=== PATIENT | male | born 1985 | race Hispanic/Latino ===

== ENCOUNTER 2018-04-10 08:00 | Outpatient (RCR) | payer OTHER, SELFPAY ==
--- NOTE | 2018-03-16 09:55 | HP.OTEVAL ---
Patient's Visit Information ANNELIESE MONTAGUE is a 32 year old M, referred to Occupational Therapy by SHARMILA PONCE, with a diagnosis of 5th digit MCP break at neck. Date of Evaluation: 03/16/18 Occupational Therapist: Kayla Dunham - Subjective Subjective: Pt., Anneliese, arrived from work and noted that he had original injury 2017. Referred from [facility]. He is 11 weeks post break. Arrived in splint with Ronald wrap over top. He noted he did not believe fracture was healed. OT called [facility] for further clarification. See concerns box below for further details. - Pain Left Hand 1 Pain Intensity Range: 1, 6 - Objective Objective/Observation: Significantly decreased ROM and strength of L hand. Increased scar tissue formation over scar on dorsal PF. Scar closed but stiff. Increased pain with palpation over scar. Concerns: Called and talked with Zainab who transferred me to [place] at [facility]. Noted that per doctor?s note fracture was to neck of 5th digit MCP. Order for 3rd MCP. She is to refax correct order. Further clarified that he does not need to wear splint per doctor note. He arrived in wrist cock up like splint with ronald bandage overtop. Will make protective calm shell for work to free up 1st to 3rd digits with wrist free. Educated he is ONLY to wear at work as hand and wrist as significantly stiff. Additionally, she noted that fracture is healed as Pt. was unsure. However, callus has not formed but bones are aligned. - ROM Wrist: Flexion R 0-74, L 0-56; ext R 0-70, L 0-55 MP: R WNL; L MF 26-54, RF 11-43, PF 37-43 PIP: R WNL; L MF 12-70, RF 21-61, PF 17-42 - Strength Telephone Directory Deliverer: R 110, L 15 Lateral Pinch: R 24, L 14 Tripod Pinch: R 24, L 6 - Edema Proximal Phalanx: MF R 6.4 cm, L 7 cm; RF R 6.1 cm, L 6.7 cm - Sensation Sensation Comments: notes some numbness and tingling around 5th digit. Further testing to occur. - Hand/Wrist Evaluation Total Score of Pain & Functional Sections: 61 - Goals Goal:: Anneliese to increased L chicken cutter to be 60% of R nonaffected hand 4/5 trials 80% of the time by d/c. Goal:: Anneliese to increase L hand ROM with the ability to complete full composite fist by d/c. Goal:: Anneliese to have no more than 1/10 pain with no splint during work related tasks 100% of the time by d/c. Goal:: Anneliese to be able to complete 9 hole pegboard test with in 3-5 seconds of R hand to promote increased finger dexterity and increased ROM of hand needed for job related tasks by d/c. Goal:: Anneliese to decrease edema in L hand to increased ROM to promote ability to return to PLOF y d/c. Goal:: Anneliese to complete joint protection techniques to decrease risk of further reinjury to L hand by d/c. Goal:: Anneliese to be (I) to return to all ADL/IADLs at PLOF with L hand and UE to promote increased ROM and strength needed to complete work related tasks. - Rehabilitation General Assessment: Anneliese completed OT evaluation on this date of 03/16/18. He exhibits significantly decreased ROM, strength, and ability to make full composite fist with L hand. Increased pain with movements and pain over dorsal scar with palpation. After further clarification from [facility] fracture was to neck of MCP and fracture is healed but no callus is formed. Protective splint made to wear at work only. OT to focus of progressive ROM, strength, and general exercises to promote increased use of L hand to begin to promote returning to PLOF for all ADL/IADLs including work related tasks.Protective splint made to wear at work only. ROM, strength,a dn geenral exercises to promote increased use of L hand to begin to promote returning to PLOF for all ADL/IADLs including work related tasks. Rehabilitation Potential: Good - Anticipated Interventions Anticipated Interventions: A/AAROM/PROM, Strengthening, Edema Control, Scar Care, Massage, Desensitization, Wound Care, Modalities, Orthoses, Joint Protection/Energy Conservation, Ergonomic Education, Fine Motor Coord/Rod, Home Program - Visit Plan Frequency: 2-3x /Week Duration: 4-5 weeks General Plan: OT to work on regaining ROM, strength, and decrease scar tissue formation over 5th to decrease risk of further stiffness of hand occurring and promote returning to all ADL/IADLs including all work tasks. Additionally, modalities to be used to promote movement and help regain ROM. TEXT: Thank you for the opportunity to evaluate your patient. For Medicare and Medicare HMO plans, please review the plan of care and approve it. It will need to be FAXED BACK to us at [phone] for Medicare purposes. Please let me know if there are questions or concerns regarding this plan of care. Physician Signature: Date:
--- NOTE | 2018-03-26 08:40 | HP.OTCOM ---
OT Communication Note 03/26/[address] SHARMILA PONCE Completed additional additional ROM and are as follows: ROM: - MCP RF R WFL, L 0-49; PF R WFL, L 20-54 - PIP RR R WFL, L 0-87, PF R WFL L 0-57 - DIP RF R WFL, L 0-48 , PF R WFL, L 0-40 Strength: Senior Media Planner R 125, L 45 lateral R 28 L 20 tripod R 30 L 15 Still limited to make full composite fist but ROM progressing. Decreased alignment noted with forming composite fist of L PF with increased adduction towards RF. No longer wearing splint at work but clam shell has been fabricated previously for protection only. Please when convenient send correct order to treat L PF as order sent states 3rd finger. Sincerely, Kayla Dunham, OTR/L Contact Information
--- NOTE | 2018-04-10 08:40 | HP.OTREVAL ---
SHARMILA PONCE, It has been my pleasure to treat ANNELIESE MONTAGUE over the last 12 visits for 5th digit MCP break at neck. Please see the progress note below for an update on the occupational therapy plan of care! Subjective: Arrived and noted 2-4th digits doing well but 5th still very stiff and tight. Objective/Function: Reassessment completed on this date of 04/10/18 and results are as follows: ROM: wrist. - flexion R 0-61, L 0-58. - extension R 0-66, L 0-63. Fingers: RF. MCP R 0-81, L 0-66. PIP R 0- 98, L 0-97. DIP R 0-65, L 7-63. PF. MCP R 0-95, L 28-58. PIP R 0-96, L 0-70. DIP R 0-57, L 0-47. On left hand he remains unable to make full composite fist on ulnar side: RF .6 of inch from palm and PF 1 inch from palm. Strength: Importer Exporter R 112, L 58 lbs. lateral R 25, L 20 lbs. tripod R 30, L 15 lbs. pincer R 18, L 10 lbs. He is progressed since inital evaluation in ROM and strength. He would benefit from continued OT. Plan Frequency: 2x /Week Duration: 3 Weeks Visits in this POC: proposed 6; total with 12 already completed would be 18 Plan: Anneliese is to return to doctor as he would benefit from from continued OT to promote ability to make full composite fist. Additional static progressive splints will be trialed and recommended continued POC would be for 2x 3 weeks for a total of 6 visits. Goals - Goals Goal:: Anneliese to increased L assistant customer service manager to be 60% of R nonaffected hand 4/5 trials 80% of the time by d/c. Goal:: Anneliese to increase L hand ROM with the ability to complete full composite fist by d/c. Goal:: Anneliese to have no more than 1/10 pain with no splint during work related tasks 100% of the time by d/c. Goal:: Anneliese to be able to complete 9 hole pegboard test with in 3-5 seconds of R hand to promote increased finger dexterity and increased ROM of hand needed for job related tasks by d/c. Goal:: Anneliese to decrease edema in L hand to increased ROM to promote ability to return to PLOF y d/c. Goal:: Anneliese to complete joint protection techniques to decrease risk of further reinjury to L hand by d/c. Goal:: Anneliese to be (I) to return to all ADL/IADLs at PLOF with L hand and UE to promote increased ROM and strength needed to complete work related tasks. Anticipated Interventions Anticipated Interventions: A/AAROM/PROM, Strengthening, Edema Control, Scar Care, Massage, Desensitization, Wound Care, Modalities, Orthoses, Joint Protection/Energy Conservation, Ergonomic Education, Fine Motor Coord/Rod, Home Program Please do not hesitate to contact me at [phone] by phone or if you have questions or concerns regarding this new plan of care! Sincerely, Kayla Dunham
--- OUTSIDE RECORDS SUMMARY | 2018-05-09 07:42 | XMS RPT_ITS ---
:1985 Author Organization [facility] Care Team Providers Name Role Phone GUERITA ARCELIA Attending Unavailable PHYSICIAN, NONE Primary Care Unavailable DARNELL SANTIAGO Attending Unavailable DARNELL SANTIAGO Referring Unavailable Primay Care Physicia, No Primary Care Unavailable DARNELL SANTIAGO Consulting Unavailable PROBLEMS PROBLEMS No Problem Records FoundPROCEDURES PROCEDURES No Procedure Records FoundRESULTS RESULTS OT GENERAL EVALUATION Observed: 03/16/2018 Status: F Source: [place] 3:53 PM [facility] REPOSITORY [facility] Occupational Therapy [facility] [address] [place] [address]. [address] [place] [address] Fax REHABILITATION SERVICES INITIAL EVALUATION MR#: [id number] Acct: [id number] Name: ANNELIESE MONTAGUE Rep #: [id number] : 1985 32 From: Kayla Dunham Referring Dr.: Status: REG RCR Insurance: [employer] Eval Date: SELF PAY INSURANCE Patient's Visit Information ANNELIESE MONTAGUE is a 32 year old M, referred to Occupational Therapy by SHARMILA PONCE, with a diagnosis of 5th digit MCP break at neck. Date of Evaluation: 03/16/18 Occupational Therapist: Kayla Dunham - Subjective Subjective: Pt., Anneliese, arrived from work and noted that he had original injury 2017. Referred from [facility]. He is 11 weeks post break. Arrived in splint with Ronald wrap over top. He noted he did not believe fracture was healed. OT called [facility] for further clarification. See concerns box below for further details. - Pain Left Hand 1 Pain Intensity Range: 1, 6 - Objective Objective/Observation: Significantly decreased ROM and strength of L hand. Increased scar tissue formation over scar on dorsal PF. Scar closed but stiff. Increased pain with palpation over scar. Concerns: Called and talked with Zainab who transferred me to [place] at [facility]. Noted that per doctor s note fracture was to neck of 5th digit MCP. Order for 3rd MCP. She is to refax correct order. Further clarified that he does not need to wear splint per doctor note. He arrived in wrist cock up like splint with ronald bandage overtop. Will make protective calm shell for work to free up 1st to 3rd digits with wrist free. Educated he is ONLY to wear at work as hand and wrist as significantly stiff. Additionally, she noted that fracture is healed as Pt. was unsure. However, callus has not formed but bones are aligned. - ROM Wrist: Flexion R 0-74, L 0-56; ext R 0-70, L 0-55 MP: R WNL; L MF 26-54, RF 11-43, PF 37-43 PIP: R WNL; L MF 12-70, RF 21-61, PF 17-42 - Strength Pulmonary Function Technologist: R 110, L 15 Lateral Pinch: R 24, L 14 Tripod Pinch: R 24, L 6 - Edema Proximal Phalanx: MF R 6.4 cm, L 7 cm; RF R 6.1 cm, L 6.7 cm - Sensation Sensation Comments: notes some numbness and tingling around 5th digit. Further testing to occur. - Hand/Wrist Evaluation Total Score of Pain AND Functional Sections: 61 - Goals Goal:: Anneliese to increased L siding coreboard inspector to be 60% of R nonaffected hand 4/5 trials 80% of the time by d/c. Goal:: Anneliese to increase L hand ROM with the ability to complete full composite fist by d/c. Goal:: Anneliese to have no more than 1/10 pain with no splint during work related tasks 100% of the time by d/c. Goal:: Anneliese to be able to complete 9 hole pegboard test with in 3-5 seconds of R hand to promote increased finger dexterity and increased ROM of hand needed for job related tasks by d/c. Goal:: Anneliese to decrease edema in L hand to increased ROM to promote ability to return to PLOF y d/c. Goal:: Anneliese to complete joint protection techniques to decrease risk of further reinjury to L hand by d/c. Goal:: Anneliese to be (I) to return to all ADL/IADLs at PLOF with L hand and UE to promote increased ROM and strength needed to complete work related tasks. - Rehabilitation General Assessment: Anneliese completed OT evaluation on this date of 03/16/18. He exhibits significantly decreased ROM, strength, and ability to make full composite fist with L hand. Increased pain with movements and pain over dorsal scar with palpation. After further clarification from [facility] fracture was to neck of MCP and fracture is healed but no callus is formed. Protective splint made to wear at work only. OT to focus of progressive ROM, strength, and general exercises to promote increased use of L hand to begin to promote returning to PLOF for all ADL/IADLs including work related tasks.Protective splint made to wear at work only. ROM, strength,a dn geenral exercises to promote increased use of L hand to begin to promote returning to PLOF for all ADL/IADLs including work related tasks. Rehabilitation Potential: Good - Anticipated Interventions Anticipated Interventions: A/AAROM/PROM, Strengthening, Edema Control, Scar Care, Massage, Desensitization, Wound Care, Modalities, Orthoses, Joint Protection/Energy Conservation, Ergonomic Education, Fine Motor Coord/Rod, Home Program - Visit Plan Frequency: 2-3x /Week Duration: 4-5 weeks General Plan: OT to work on regaining ROM, strength, and decrease scar tissue formation over 5th to decrease risk of further stiffness of hand occurring and promote returning to all ADL/IADLs including all work tasks. Additionally, modalities to be used to promote movement and help regain ROM. TEXT: Thank you for the opportunity to evaluate your patient. For Medicare and Medicare HMO plans, please review the plan of care and approve it. It will need to be FAXED BACK to us at [phone] for Medicare purposes. Please let me know if there are questions or concerns regarding this plan of care. Physician Signature: Date: <Electronically signed by Kayla Dunham > 03/16/18 1553 CC: No Primary Care Physician; SHARMILA PONCE KMB Signed For Medicare only, by signing this I certify the plan of care. Physicians Signature Date XR HAND MINIMUM 3 Observed: 01/01/2018 Status: F Source: [place] VIEWS LEFT 4:45 PM [facility] REPOSITORY ORIGINAL XR HAND MINIMUM 3 VIEWS LEFT CLINICAL STATEMENT: injury. Trauma. COMPARISON: None FINDINGS: Acute fractures of the distal metaphysis of LEFT 5th metacarpal with dorsal angulation as well as nondisplaced comminuted fracture of the head of the 3rd LEFT metacarpal are noted. There is ad jacent soft tissue swelling. The joint spaces are maintained. There is no radiopaque foreign body. IMPRESSION: Angulated fracture of distal metaphysis and neck of LEFT 5th metacarpal as described above. Comminuted nondisplaced fracture of the head of the LEFT 3rd metacarpal. There is overlying soft tissue swelling/laceration. I have personally reviewed the images of this examination and agree with the resident's findings and interpretation. Interpreted By: Ed Rizzo MD Preliminary Report By: Ed Robert DO Electronically Signed By: Ed Rizzo MD Dictated Date: 01/01/2018 4:47:59 PM Prelim Date: 01/01/2018 4:50:14 PM Sign Date: 01/01/2018 4:58:19 PM CBC Collected: 01/01/2018 Status: F Source: [place] 4:42 PM [facility] REPOSITORY TYPE CODE TESTS RESULT OUT OF REFERENCE UNITS RANGE LAB WBC(LOINC) 4.60-10.80 10 3/mcL WBC 7.10 LAB RBCCT(LOINC 4.04-6.13 10 6/mcL ) RBC 5.19 LAB HGB(LOINC) 14.0-18.0 G/dL Hgb 16.3 LAB HCT(LOINC) 42.0-52.0 % Hct 45.5 LAB MCV(LOINC) 80.0-94.0 fL MCV 87.7 LAB MCH(LOINC) 27.0-31.2 pg High MCH 31.5 LAB MCHC(LOINC) 31.8-35.4 G/dL High MCHC 35.9 LAB RDW(LOINC) 11.5-14.5 % RDW 13.0 LAB PLT(LOINC) 130-400 10 3/mcL Platelet 283 LAB MPV(LOINC) 7.4-10.4 fL MPV 8.6 Performed By: #### BMP, GFR #### [place] [address] #### ANEU, ADIFF, CBC #### [address] [address] .AUTO DIFF Collected: 01/01/2018 Status: F Source: [facility] 4:42 [facility] REPOSITORY TYPE CODE TESTS RESULT OUT OF REFERENCE UNITS RANGE LAB TIFAFNIE(LOINC) 37.0-80.0 % Neutrophil % 50.0 LAB LYM(LOINC) 10.0-50.0 % Lymphocyte % 39.9 LAB MON(LOINC) 1.7-13.0 % Monocyte % 7.9 LAB EO(LOINC) 0.0-7.0 % Eosinophil % 1.5 LAB BAS(LOINC) 0.0-2.5 % Basophil % 0.7 LAB ABLYM(LOIN 0.77-3.85 10 3/mcL C) Lymphocyte, 2.80 Absolute LAB ROBYN(LOINC 0.15-1.00 10 3/mcL ) Monocyte, 0.60 Absolute LAB AEOS(LOINC 0.00-0.40 10 3/mcL ) Eosinophil, 0.10 Absolute LAB ABAS(LOINC 0.00-0.19 10 3/mcL ) Basophil, 0.00 Absolute Performed By: #### BMP, GFR #### [place] [address] #### ANEU, ADIFF, CBC #### [address] [address] .NEUABS Collected: 01/01/2018 Status: F Source: [facility] 4:42 [facility] REPOSITORY TYPE CODE TESTS RESULT OUT OF REFERENCE UNITS RANGE LAB ANEU(LOINC) 2.85-6.16 10 3/mcL Neutrophil, 3.60 Absolute Performed By: #### BMP, GFR #### [place] [address] #### ANEUEM, CBC #### [place] [address] [place], [place] [address] BMP Collected: 01/01/2018 Status: F Source: [facility] 4:42 [facility] REPOSITORY TYPE CODE TESTS RESULT OUT OF REFERENCE UNITS RANGE LAB GLU(LOINC) 70-105 mg/dL Glucose High Level 152 LAB NA(LOINC) 136-145 mmol/L Sodium Level 138 LAB K(LOINC) 3.5-5.1 mmol/L Potassium Level 4.3 LAB CL(LOINC) 98-107 mmol/L Chloride 100 LAB CO2(LOINC) 22-29 mmol/L CO2 29 LAB EBAL(LOINC mEq/L ) Electrolyte Balance 9.0 LAB BUN(LOINC) 7-18 mg/dL BUN 16 LAB CRE(LOINC) 0.70-1.30 mg/dL Creatinine High Lvl (s) 1.38 LAB BC(LOINC) 7-27 ratio BUN/Creatinine 12 Ratio LAB CA(LOINC) 8.4-10.2 mg/dL Calcium Lvl High 10.4 Performed By: #### BMP, GFR #### [place] [address] #### ANEU, EM, CBC #### [place] [address] [place], [place] [address] .GFR Collected: 01/01/2018 Status: F Source: [facility] 4:42 PM [facility] REPOSITORY TYPE CODE TESTS RESULT OUT OF REFERENCE UNITS RANGE LAB GFRAA(LOINC ml/min/1.73 ) sqm GFR 71 British Result Comment: GFR Population mean for , Non- Americans Ages 20-29 = 116 mL/min/1.73 sq.m. Ages 30-39 = 107 mL/min/1.73 sq.m. Ages 40-49 = 99 mL/min/1.73 sq.m. Ages 50-59 = 93 mL/min/1.73 sq.m. Ages 60-69 = 85 mL/min/1.73 sq.m. Ages 70+ = 75 mL/min/1.73 sq.m. Chronic Kidney Disease: Less than 60 mL/min/1.73 square meters End Stage Renal Disease: Less than 15 mL/min/1.73 square meters LAB GFRNO(LOINC) ml/min/1.73sqm GFR Non- 59 Result Comment: GFR Population mean for , Non- Americans Ages 20-29 = 116 mL/min/1.73 sq.m. Ages 30-39 = 107 mL/min/1.73 sq.m. Ages 40-49 = 99 mL/min/1.73 sq.m. Ages 50-59 = 93 mL/min/1.73 sq.m. Ages 60-69 = 85 mL/min/1.73 sq.m. Ages 70+ = 75 mL/min/1.73 sq.m. Chronic Kidney Disease: Less than 60 mL/min/1.73 square meters End Stage Renal Disease: Less than 15 mL/min/1.73 square meters Performed By: #### BMP, GFR #### [place] [address] #### EM BANDA, CBC #### [address] [address] ALLERGIES ALLERGIES No Allergies Records FoundENCOUNTERS ENCOUNTERS ADMIT/DISCHARGE ACCOUNT NUMBER ADMITTING ENCOUNTER LOCATION SOURCE CLASS 03/31/2018 [id number] Ambulatory [facility] ding:OT Repository 01/01/2018/01/02/20 [id number] Emergency BBuilding:[address] Repository PAYERS PAYERS ENCOUNTER GUARANTOR PAYER SUBSCRIBER SOURCE 03/31/2018 ANNELIESE Price Primary ANNELIESE MONTAGUE8969 Insurance:[facility] MARTINEZDOB: [facility] [id number] Number: Repository [address]Yhj: [phone] [phone] () Date:[id number] [place] [id number], [place] [address]RP: 03/31/2018 [facility]SELF [facility] Number: Effective Repository Date:2018-03-13 01/01/2018 ANNELIESE Primary ANNELIESE [facility] MARTINEZDOB: Insurance:[employer] MARTINEZDOB: [facility] [id number] [facility] [id number] Repository [address] Number: [phone] [place], [place] [id number], [place] [address]Llm: ([phone]) Date:2018-01-01 [id number]: () [id number] [phone] Name:APO Royal ()Tel: [phone], [place] [phone] () [phone]:
--- NOTE | 2018-10-05 17:39 | HP.OTDCSUM ---
HP - OT D/C Summary It has been my pleasure to treat MENDEL MONTAGUE under orders from SHARMILA PONCE, for the diagnosis of 5th digit MCP break at neck for a total of 12 visit(s). Please see the following information for a summary of their discharge status. - Overall Improvement % Improvement: 75 - Objective Objective/Function: Reassessment completed on this date of 04/10/18 and results are as follows: ROM: wrist. - flexion R 0-61, L 0-58. - extension R 0-66, L 0-63. Fingers: RF. MCP R 0-81, L 0-66. PIP R 0- 98, L 0-97. DIP R 0-65, L 7-63. PF. MCP R 0-95, L 28-58. PIP R 0-96, L 0-70. DIP R 0-57, L 0-47. On left hand he remains unable to make full composite fist on ulnar side: RF .6 of inch from palm and PF 1 inch from palm. Strength: Lab Aid R 112, L 58 lbs. lateral R 25, L 20 lbs. tripod R 30, L 15 lbs. pincer R 18, L 10 lbs. He is progressed since inital evaluation in ROM and strength. He would benefit from continued OT. 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 Goal:: Mendel to increase L hand ROM with the ability to complete full composite fist by d/c. Goal:: Mendel to have no more than 1/10 pain with no splint during work related tasks 100% of the time by d/c. Goal:: Mendel to be able to complete 9 hole pegboard test with in 3-5 seconds of R hand to promote increased finger dexterity and increased ROM of hand needed for job related tasks by d/c. Goal:: Mendel to decrease edema in L hand to increased ROM to promote ability to return to PLOF y d/c. Goal:: Mendel to complete joint protection techniques to decrease risk of further reinjury to L hand by d/c. Goal:: Mendel to be (I) to return to all ADL/IADLs at PLOF with L hand and UE to promote increased ROM and strength needed to complete work related tasks. - Plan Plan: Pt. last seen 04/21/18. He was to return back to doctor to get c9 approved for more visits. Did not have further C9 approval at this facility and will be d/c'd. He is to call with questions/concerns. - D/C Information If there are questions or concerns regarding this patient's occupational therapy, please fell free to call me at [phone]. Thank you for the referral of this patient. Sincerely, Kayla Dunham, OTR/L
== END 2018-04-10 19:00 | disposition home or self-care (01) ==
LOC: OT 08:00
DX: S62.303D Unspecified fracture of third metacarpal bone, left hand, subsequent encounter for fracture with routine healing (principal)
CPT/HCPCS: 97035; 97110; 97140; 97166; 97168; 97530; 97760

== ENCOUNTER → 2019-08-19 | Outpatient (CLI) | payer OTHER, SELFPAY | END | disposition home or self-care (01) | LOC: LABSPEC 11:41 | PROVIDERS: PCP Family Medicine; Referring Provider Family Medicine; Visit Provider Family Medicine | DX: U07.1 COVID-19 (principal) | CPT/HCPCS: 87633; 87635; 94799; G2023; U0004 ==